=== PATIENT | male | born 1995 | race Caucasian/White ===

== ENCOUNTER → 2021-05-18 | Outpatient (CLI) | payer OTHER ==
[~2021-05-18] MED LIST: ALLEGRA30 MG PO; BENADRYL50 MG PO; PERCOCET 325 MG1 TA2 PO; TYLENOL 650MG650 M2 PO; [UNRECOGNIZED DRUG - OTHER] PO
== END ==
LOC: RAD 16:00
DX: I86.1 Scrotal varices (principal)

== ENCOUNTER → 2022-01-18 | Outpatient (CLI) | payer OTHER | LOC: RAD 09:24 | DX: M79.671 Pain in right foot (principal) ==